=== PATIENT | male | born 1995 | race African-American/Black ===

== ENCOUNTER 2020-05-22 13:01 | Observation (INO) ==
[2020-05-22] MEDS ORDERED: SODIUM CHLORIDE 0.9% 1000ML 1,000 ML IV SCH (13:15)
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
[2020-05-22 13:31] LABS: iSTAT Creatinine 0.7 mg/dl (0.6-1.3); iSTAT Hemoglobin 15.6 g/dl (14.0-18.0); iSTAT Ionized Calcium 1.13 mmol/l (1.12-1.32); iSTAT Potassium 3.8 mmol/L (3.3-5.0)
[2020-05-22] MEDS ORDERED: MoRPHine SULFATE 4 MG/ML 1 ML CARP\\VIAL IV STA (13:42)
[2020-05-22] MEDS ORDERED: MoRPHine SULFATE 4 MG/ML 1 ML CARP\\VIAL ONE (13:44)
[2020-05-22] MEDS ORDERED: OPTIRAY 320 100ml IV ONE (13:58)
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
[2020-05-22 14:49] LABS: Basophils # (auto) 0.01 K/uL (0-0.2); Basophils % (auto) 0.1 %; Eosinophils # (auto) 0.06 K/uL (0-0.5); Eosinophils % (auto) 0.4 %; Hematocrit (blood only) 44.6 % (42-52); Hemoglobin 15.2 g/dL (14.0-18.0); Immature Granulocytes # (auto) 0.04 K/uL (0.00-0.02); Immature Granulocytes % (auto) 0.2 %; Lymphocytes # (auto) 2.03 K/uL (1.2-3.4); Lymphocytes % (auto) 12.1 %; Mean Corpuscular Hemoglobin 28.9 pg (25-34); Mean Corpuscular Hgb Conc 34.1 g/dL (32-36); Mean Corpuscular Volume 84.8 fL (80-100); Mean Platelet Volume 11.1 fL (7.4-10.4); Monocytes # (auto) 1.26 K/uL (0.11-0.59); Monocytes % (auto) 7.5 %; Neutrophils # (auto) 13.37 K/uL (1.4-6.5); Neutrophils % (auto) 79.7 %; Platelet Count 128 K/uL (130-400); RDW Coefficient of Variation 13.7 % (11.5-14.5); RDW Standard Deviation 41.9 fL (36.4-46.3); Red Blood Count 5.26 M/uL (4.7-6.1); White Blood Count 16.77 K/uL (4.8-10.8)
[2020-05-22 15:01] LABS: Prothrombin Time 10.5 Seconds (9.0-12.0)
[2020-05-22] MEDS ORDERED: XYLOCAINE 1%/SOD BICARB 20 ML VIAL INFIL STA (15:11)
[2020-05-22] MEDS ORDERED: BUPIVACAINE 0.5 % 5 MG/1 ML MPF 30ML VIAL INFIL ONE (15:11)
[2020-05-22 15:24] LABS: Albumin Globulin Ratio 1.1 (0.9-2); Albumin Level 3.8 gm/dl (3.4-5.0); BUN Creatinine Ratio 12.4 (10-20); Bilirubin,Total 0.5 mg/dl (0.2-1); Calcium 8.3 mg/dl (8.5-10.1); Creatinine Clr Calc Pharmacy 126.3 ml/min; Est GFR (African American) 140.3; Est GFR (Non-African American) 121.1; Globulin 3.4 gm/dl (2.5-4.0); Total Protein 7.2 gm/dl (6.4-8.2); Troponin I 0.057 ng/ml (0-0.045)
[2020-05-22] MEDS ORDERED: ceFAZolin 2000MG 2,000 MG/15 ML SYR IV STA (15:59)
--- NOTE | 2020-05-22 16:03 | Emergency Department Note ---
ED Visit Note I was asked by Dr. Ramirez to repair lacerations noted on patient's left lower extremity. He sustained a 6 cm laceration on the anterior-medial mid-molina and a 5cm laceration on the anterior left ankle/foot. Both wounds extensively gape apart without traction, though minimal active bleeding at this time. No deep structures such as bones, tendons, or blood vessels noted at the base of the wounds. The patient maintains full ROM and 5/5 strength of all toes, ankle, and left lower extremity. PROCEDURE NOTE: Verbal consent was obtained to perform the procedure. Using sterile technique the wounds were cleaned with Betadine. The area was sterilely draped. 10 ml of 1% buffered lidocaine mixed with 0.5% bupivacaine was used to anesthetize the laceration on the left molina 5 mL of 1% buffered lidocaine mixed with 0.5% bupivacaine was then used to anesthetize the laceration on the foot/ankle. Once the patient was anesthetized, the wounds were copiously irrigated under pressure with sterile saline. The wounds were explored and there were no deep structures injured such as tendons, bone, or significant blood vessels. The molina laceration was repaired using simple interrupted 4-0 Vicryl sutures to close the deep layer followed by 9 simple interrupted 4-0 nylon sutures with the wound edges being well approximated. The foot/ankle laceration was repaired using simple interrupted 4-0 Vicryl sutures to close the deep layer followed by 9 simple interrupted 4-0 nylon sutures with the wound edges being well approximated. The patient tolerated the procedure well. Hemostasis was achieved. The area was cleaned with sterile saline and dressed with bacitracin ointment and bandage. Please see Dr. Ramirez's dictation regarding ongoing management, care, and final disposition of this patient.
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
[2020-05-22] MEDS ORDERED: ONDANSETRON INJ 2 MG/ML 2 ML VIAL IV PRN (20:17)
[2020-05-22] MEDS ORDERED: ACETAMINOPHEN 325 MG TAB PO PRN (20:17)
[2020-05-22] MEDS: cephALEXin 250 MG CAP PO SCH (21:26)
[2020-05-23] MEDS ORDERED: HYDROmorphone INJ 1 MG/ML SYRINGE IV STA (01:15)
[2020-05-23 01:46] LABS: Appearance Urine Clear (Clear); Bilirubin Urine Negative (Negative); Blood Urine Negative (Negative); Color Urine Yellow; Glucose Urine UA Negative (Negative); Ketones Urine Trace (Negative); Leukocyte Esterase Urine Negative (Negative); Nitrite Urine Negative (Negative); Protein Urine Negative (Negative); Specific Gravity Urine 1.035 (1.000-1.030); Urobilinogen Urine Negative (Negative)
[2020-05-23 02:10] LABS: Amphetamines+Metham, Urine Neg (Neg); Barbiturates, Urine Neg (Neg); Benzodiazepine, Urine Neg (Neg); Cocaine, Urine Neg (Neg); MDMA (Ecstacy), Urine Neg (Neg); Methadone, Urine Neg (Neg); Opiate, Urine Pos (Neg); Phencyclidine, Urine Neg (Neg)
--- NOTE | 2020-05-23 06:50 | Electrocardiogram Report ---
Test Reason : Blood Pressure : / mmHG Vent. Rate : 086 BPM Atrial Rate : 086 BPM P-R Int : 220 ms QRS Dur : 082 ms QT Int : 328 ms P-R-T Axes : 060 084 061 degrees QTc Int : 392 ms Sinus rhythm with 1st degree A-V block Early repolarization Otherwise normal ECG No previous ECGs available Confirmed by Jose Alberto Grossman ([id number]) on 05/23/2020 6:49:55 AM Referred By: REFERRED SELF Confirmed By:Jose Alberto Grossman
[2020-05-23 07:29] LABS: Hematocrit (blood only) 40.4 % (42-52); Mean Corpuscular Hemoglobin 29.2 pg (25-34); Mean Corpuscular Hgb Conc 34.7 g/dL (32-36); Mean Corpuscular Volume 84.3 fL (80-100); Mean Platelet Volume 11.4 fL (7.4-10.4); Platelet Count 132 K/uL (130-400); RDW Coefficient of Variation 13.7 % (11.5-14.5); RDW Standard Deviation 42.5 fL (36.4-46.3); Red Blood Count 4.79 M/uL (4.7-6.1); White Blood Count 10.03 K/uL (4.8-10.8)
[2020-05-23 07:57] LABS: Albumin Level 3.4 gm/dl (3.4-5.0); BUN Creatinine Ratio 9.6 (10-20); Calcium 8.8 mg/dl (8.5-10.1); Creatinine Clr Calc Pharmacy 119.3 ml/min
[2020-05-23 08:00] LABS: Globulin 3.5 gm/dl (2.5-4.0); Total Protein 6.9 gm/dl (6.4-8.2)
[2020-05-23] MEDS: cephALEXin 250 MG CAP PO SCH ×2 (09:00→12:20)
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
--- NOTE | 2020-05-23 13:22 | XCELERA ---
[id number]
[2020-05-25 03:57] LABS: Codeine Urine NEGATIVE ng/mL (<50); Hydrocodone Urine NEGATIVE ng/mL (<50); Hydromor Urine NEGATIVE ng/mL (<50); Marijuana Quant, GCMS Urine 1940 ng/mL (<5); Morphine Urine 1170 ng/mL (<50); Norhydrocodone Conf Ur NEGATIVE ng/mL (<50); Noroxycodone Urine NEGATIVE ng/mL (<50); Oxycodone Urine NEGATIVE ng/mL (<50); Oxymorph Urine NEGATIVE ng/mL (<50)
== END 2020-05-23 15:30 | disposition home or self-care (01) ==
LOC: ED 13:01 → 2N 13:01